=== PATIENT | male | born 1975 | race Caucasian/White ===

== ENCOUNTER 2019-05-13 08:43 | Emergency (ER) | payer BC ==
[~2019-05-13] VITALS: Ht 177.8 cm; Wt 81.7 kg
[~2019-05-13 08:43] MED LIST: BACI28.34 TOP; IBUP800T48 PO
[2019-05-13 08:57] VITALS: BP 130/85; PULSE 94; RESP 18; Ht 177.8 cm; Wt 81.7 kg
[2019-05-13] MEDS ORDERED: BACITRACIN 0.5%/ZINC 28.35 GM OINT TOP ONE (09:30)
[2019-05-13] MEDS ORDERED: IBUPROFEN 800 MG TAB PO ONE (09:30)
== END 2019-05-13 09:50 | disposition home or self-care (01) ==
LOC: FTE 08:43
DX: S90.811A Abrasion, right foot, initial encounter (principal); V03.10XA Pedestrian on foot injured in collision with car, pick-up truck or van in traffic accident, initial encounter
CPT/HCPCS: 99282